=== PATIENT | female | born 1975 | race Two or more races ===

== ENCOUNTER 2024-09-26 23:53 | Emergency (ER) | payer SELFPAY ==
[~2024-09-26] VITALS: Ht 154.9 cm; Wt 56.8 kg
[2024-09-27 00:02] VITALS: BP 109/55; PULSE 108; RESP 20; O2SAT 97
== END 2024-09-27 00:06 | disposition left against medical advice (07) ==
LOC: EDBD 23:53 → ER 23:53
DX: R07.89 Other chest pain (principal); R55 Syncope and collapse; Z53.21 Procedure and treatment not carried out due to patient leaving prior to being seen by health care provider